=== PATIENT | male | born 1980 | race Caucasian/White ===

== ENCOUNTER 2021-12-05 22:43 | Emergency (ER) | payer OTHER, SELFPAY ==
--- NOTE | ~2021-12-05 | CT_ITS ---
EXAMINATION: NONCONTRAST HEAD CT NONCONTRAST CERVICAL SPINE CT INDICATION INFORMATION: Fall hitting head. Loss of consciousness. COMPARISON: None TECHNIQUE: Separate noncontrast CT examinations of the head and cervical spine were performed. Coronal and sagittal images were created for each examination at the technologist workstation. This CT examination was performed using dose optimization techniques as appropriate, variously including the following: *Automated exposure control *Adjustment of mA and/or kV according to patient size (this includes techniques or standardized protocols for targeted exams where dose is matched to indication/reason for exam; i.e. extremities or head) *Use of iterative reconstruction technique DLP: 1413 mGy-cm FINDINGS: Head: There is no evidence of acute intracranial hemorrhage or territorial infarction. No abnormal mass effect or midline shift is seen. [place] to white matter differentiation is well preserved. No extra-axial fluid collections are identified. No hydrocephalus. No significant volume loss. There is no abnormal attenuation within the brain parenchyma. No acute osseous or soft tissue abnormality. Left maxillary sinus mucous retention cyst. The mastoid air cells and visualized portions of the paranasal sinuses are otherwise well aerated. Cervical spine: There is anatomic alignment of the vertebral bodies and posterior elements. The atlantoaxial and atlantooccipital articulations are intact. Vertebral body heights and intervertebral disc spaces are maintained. There are small multilevel endplate osteophytes. Mild facet arthropathy at the lower cervical spine. No evidence of acute fracture. No prevertebral soft tissue swelling. Visualized portions of the lung apices are unremarkable. The thyroid gland is unremarkable. CT/CT cervical spine wo con IMPRESSION: 1. No acute intracranial finding. 2. No fracture or malalignment of the cervical spine. Mild degenerative change.
[2021-12-05 22:44] VITALS: BP 152/92; PULSE 76; RESP 16; TEMP 36.8; O2SAT 96; BMI 25.8
--- NOTE | 2021-12-06 00:42 | ED.HEATRA ---
HPI - Head Injury General Chief complaint: Fall Stated complaint: Head injury/Fall Time Seen by Provider: 12/06/21 00:42 Source: patient Mode of arrival: ambulatory Limitations: no limitations History of Present Illness HPI Narrative: Patient was going upstairs and cement steps slipped on the ice fell forward hitting his face to the steps transiently dazed went to his apartment and slept no complete loss of consciousness no seizures came here with superficial abrasion to the nose and the forehead Related Data Previous Rx's Medication Instructions Recorded cephalexin 500 mg capsule 500 mg PO QID 7 Days #28 cap 12/06/21 Allergies Allergy/AdvReac Type Severity Reaction Status Date / Time No Known Allergies Allergy Verified 12/05/21 22:49 Review of Systems Review of Systems: Yes all other systems are reviewed and are negative [facility] Past Medical History Medical History No known health problems Social History Social History Advance Directives: No Advance Directives Information Provided: Yes Physical Exam Vital Signs: Vital Signs: Last Vital Signs Temp 98.3 F 12/05/21 22:44 Pulse 76 12/05/21 22:44 Resp 16 12/05/21 22:44 BP 152/92 H 12/05/21 22:44 Pulse Ox 96 12/05/21 22:44 BMI result Body Mass Index 25.8 Const: General: no acute distress Nutritional Appearance: average body habitus Orientation/consciousness: patient oriented x3 HENMT: Head images: 1. Abrasion at the nasal bridge, forehead and upper lip Ears: hearing grossly normal bilaterally Eyes: General: appearance normal, both eyes and all related structures Neck: Neck: Yes full ROM and No tender Resp: Effort & Inspection: normal respiratory effort Auscultation: clear to auscultation bilaterally Cardio: Rate: regular rate Heart sounds: S1 normal heart sound present and S2 normal heart sound present Neuro: General: patient oriented x3 and no focal motor deficits Extrem: General: Yes normal to inspection and Yes full ROM MDM - Head Injury MDM Narrative Medical decision making narrative: Patient had CT and C-spine CT negative for any acute. Abrasions were cleaned bacitracin ointment applied tetanus shot was given will discharge patient home on cephalexin as the wound likely get infected Discharge Plan Discharge Clinical Impression: Head injury, acute, without loss of consciousness Qualifiers: Encounter type: initial encounter Qualified Code(s): S09.90XA - Unspecified injury of head, initial encounter Patient Disposition: Home, Self-Care Instructions: Head Injury (ED) Additional Instructions: Local care of facial abrasions as advised Antibiotic as advised Report to PCP if any concerns Prescriptions: New cephalexin 500 mg capsule 500 mg PO QID 7 Days Qty: 28 RF: 0 Interventions: ED Discharge Assessment Last Done: 12/06/21 01:19 Discharge Date/Time: 12/06/21 01:24
[2021-12-06] MEDS: cephALEXin 500 MG CAPSULE 1000 MG PO (01:10)
--- NOTE | 2021-12-06 01:14 | PC.NURSE ---
pt states he is in the arm and is upto date with all his shots after reading tdap info.
[2021-12-06] MEDS: oxyCODONE HCl Immed Release 5 MG TABLET 10 MG PO (01:17)
== END 2021-12-06 01:24 | disposition home or self-care (01) ==
LOC: HO.ED 12-06 01:00
PROVIDERS: Emergency Provider Internal Medicine
DX: S09.90XA Unspecified injury of head, initial encounter (principal); S00.31XA Abrasion of nose, initial encounter; S00.81XA Abrasion of other part of head, initial encounter; S00.511A Abrasion of lip, initial encounter; W00.1XXA Fall from stairs and steps due to ice and snow, initial encounter; Y93.89 Activity, other specified; Y92.018 Other place in single-family (private) house as the place of occurrence of the external cause; Y99.9 Unspecified external cause status
CPT/HCPCS: 70450; 72125; 90471; 99284